=== PATIENT | male | born 1965 | race Caucasian/White ===

== ENCOUNTER 2025-02-11 09:41 | Emergency (ER) | payer OTHER | END 2025-02-11 10:51 | disposition home or self-care (01) | LOC: CSHERS 09:41 | DX: G47.00 Insomnia, unspecified (principal); E11.9 Type 2 diabetes mellitus without complications; F17.290 Nicotine dependence, other tobacco product, uncomplicated; Z86.73 Personal history of transient ischemic attack (TIA), and cerebral infarction without residual deficits | CPT/HCPCS: 99283 ==

== ENCOUNTER 2025-03-03 09:11 | Emergency (ER) | payer OTHER ==
[2025-03-03] MEDS ORDERED: HYDROcodone/Acetaminophen 10/325 mg Tablet ONE (11:42)
== END 2025-03-03 15:10 | disposition home or self-care (01) ==
LOC: CSHERS 09:11
DX: M25.511 Pain in right shoulder (principal); F17.290 Nicotine dependence, other tobacco product, uncomplicated
CPT/HCPCS: 99283